=== PATIENT | female | born 1990 | race Caucasian/White ===

== ENCOUNTER 2018-09-08 09:28 | Emergency (ER) | payer MEDICAID ==
[~2018-09-08] VITALS: Ht 180.3 cm; Wt 121.2 kg
[2018-09-08 09:32] VITALS: BP 109/62
--- NOTE | 2018-09-08 09:40 | NUR ---
URINE COLLECTED AND SENT TO LAB
--- NOTE | 2018-09-08 09:40 | NUR ---
C/O NAUSEA, HEADACHE AND DIARRHEA X1 DAY. PT STATES SHE HAS HAD WATERY DIARRHEA SINCE LAST NIGHT. HEADACHE AND ADB PAIN CRAMPING LLQ 6/10 X1 WEEK. DENIES UTI SYMPTOMS, DENIES FEVER.SKIN IS PINK/WARM/DRY; AAOX4 WITH EVEN AND STEADY GAIT; VSS; PATIENT POSITIONED FOR COMFORT; HOB ELEVATED; BEDRAILS UP X1; BED DOWN. ER MD MADE AWARE OF PT STATUS.
--- NOTE | 2018-09-08 09:40 | NUR ---
Patient ambulated to bed 9. RN evaluating patient at bedside.
[2018-09-08 10:31] LABS: BASOPHILS # (AUTO) 0.1 K/uL (0.00-0.22); BASOPHILS % (AUTO) 0.8 % (0.0-2.0); EOSINOPHILS # (AUTO) 0.1 K/uL (0-0.4); HEMOGLOBIN 8.3 g/dL (12.0-16.0); LYMPHOCYTES # (AUTO) 1.4 K/uL (2.5-16.5); LYMPHOCYTES % (AUTO) 20.9 % (20.5-51.1); MEAN CORPUSCULAR HEMOGLOBIN 20 pg (27-31); MEAN CORPUSCULAR HGB CONC 31 g/dL (33-37); MEAN CORPUSCULAR VOLUME 66.1 fL (80-94); MONOCYTES # (AUTO) 0.4 K/uL (0.8-1.0); MONOCYTES % (AUTO) 5.7 % (1.7-9.3); NEUTROPHILS # (AUTO) 4.6 K/uL (1.8-7.7); NEUTROPHILS % (AUTO) 70.6 % (42.2-75.2); PLATELET COUNT (AUTO) 235 K/uL (140-450); RED BLOOD CELL COUNT(AUTO) 4.08 MIL/uL (4.20-5.40); RED CELL DISTRIBUTION WIDTH 18.8 % (11.6-13.7); WHITE BLOOD COUNT (AUTO) 6.5 K/uL (4.8-10.8)
[2018-09-08 10:33] LABS: APPEARANCE,URINE CLEAR (CLEAR); BILIRUBIN,URINE NEGATIVE (NEGATIVE); BLOOD, URINE NEGATIVE (NEGATIVE); COLOR,URINE YELLOW (YELLOW); LEUKOCYTE ESTERASE ,URINE NEGATIVE (NEGATIVE); NITRITE, URINE NEGATIVE (NEGATIVE); PH,URINE 7.5 (5.0-9.0); UGLUCOSE NEGATIVE (NEGATIVE)
[2018-09-08] MEDS ORDERED: ONDANSETRON 4 MG ODT PO ONE (11:55)
--- NOTE | 2018-09-08 11:55 | NUR ---
Dr. Justin evaluating patient at bedside.
[2018-09-08] MEDS ORDERED: ONDANSETRON 4 MG ODT ONE (12:01)
--- NOTE | 2018-09-08 12:40 | NUR ---
ULTRASOUND AT BEDSIDE COMPLETED
[2018-09-08 13:27] LABS: ALBUMIN 3.1 g/dL (3.4-5.0); ANION GAP 14.7 (8-16); CARBON DIOXIDE 23.1 mmol/L (21-32); CREATININE 0.7 mg/dL (0.6-1.3); POTASSIUM 3.8 mmol/L (3.5-5.1); TOTAL BILIRUBIN 0.3 mg/dL (0.0-1.0)
--- NOTE | 2018-09-08 14:14 | NUR ---
Patient discharged with v/s stable. Written and verbal after care instructions given and explained. Patient verbalized understanding. Ambulatory with steady gait. All questions addressed prior to discharge. Advised to follow up with PMD.
[2018-09-08 14:15] VITALS: BP 138/87
== END 2018-09-08 14:14 | disposition home or self-care (01) ==
LOC: MED 09:28
DX: K52.9 Noninfective gastroenteritis and colitis, unspecified (principal); Z88.1 Allergy status to other antibiotic agents
CPT/HCPCS: 36415; 76830; 80053; 81003; 81025; 83690; 85025; 99284; Q0092; Q0162

== ENCOUNTER 2019-02-15 12:23 | Emergency (ER) | payer MEDICAID ==
[~2019-02-15] VITALS: Ht 162.6 cm; Wt 120.7 kg
[2019-02-15 12:26] VITALS: BP 120/71
[2019-02-15 13:11] LABS: BILIRUBIN,URINE NEGATIVE (NEGATIVE); BLOOD, URINE 3+ (NEGATIVE); COLOR,URINE YELLOW (YELLOW); LEUKOCYTE ESTERASE ,URINE 1+ (NEGATIVE); NITRITE, URINE NEGATIVE (NEGATIVE); PH,URINE 6.5 (5.0-9.0); UGLUCOSE NEGATIVE (NEGATIVE)
[2019-02-15 13:13] LABS: APPEARANCE,URINE HAZY (CLEAR)
[2019-02-15 13:21] LABS: RBC,URINE 11-20 (MOD) /HPF (0-5)
[2019-02-15 13:24] LABS: URINE AMORPHOUS URATE 1+ /HPF (None Seen)
[2019-02-15 13:43] VITALS: BP 131/68
== END 2019-02-15 13:43 | disposition home or self-care (01) ==
LOC: MED 12:23
DX: N39.0 Urinary tract infection, site not specified (principal); K59.00 Constipation, unspecified; N93.9 Abnormal uterine and vaginal bleeding, unspecified; Z88.0 Allergy status to penicillin
CPT/HCPCS: 74018; 81001; 81025; 87086; 99284

== ENCOUNTER 2019-06-30 08:47 | Emergency (ER) | payer MEDICAID ==
[~2019-06-30] VITALS: Ht 165.1 cm; Wt 121.3 kg
[2019-06-30 08:54] VITALS: BP 127/64
--- NOTE | 2019-06-30 08:58 | NUR ---
PT TO BED 12 WITH STEADY GAIT Addendum: 06/30/19 at 0859 by [email or web address] BED 11
--- NOTE | 2019-06-30 09:00 | NUR ---
28/F BIB FAMILY C/O LOWER ABDOMINAL CRAMPING, H/A, AND CHILLS X 1 WEEK. DENIES DYSURIA.TOOK HOME TEST (+). LMP MAY 28, 2019. ABDOMEN SOFT. PATIENT STATES PAIN OF 8/10 AT THIS TIME. PATIENT POSITIONED FOR COMFORT; HOB ELEVATED; BEDRAILS UP X1; BED DOWN. ER MD MADE AWARE OF PT STATUS.
--- NOTE | 2019-06-30 09:48 | NUR ---
US AT BEDSIDE
[2019-06-30 10:42] LABS: BASOPHILS % (AUTO) 0.4 % (0.0-2.0); EOSINOPHILS # (AUTO) 0.1 K/uL (0-0.4); EOSINOPHILS % (AUTO) 1.8 % (0.0-4.0); HEMATOCRIT 26.6 % (36-48); HEMOGLOBIN 8.1 g/dL (12.0-16.0); LYMPHOCYTES # (AUTO) 1.3 K/uL (2.5-16.5); LYMPHOCYTES % (AUTO) 19.7 % (20.5-51.1); MEAN CORPUSCULAR HEMOGLOBIN 20 pg (27-31); MEAN CORPUSCULAR HGB CONC 31 g/dL (33-37); MEAN CORPUSCULAR VOLUME 65.7 fL (80-94); MONOCYTES # (AUTO) 0.4 K/uL (0.8-1.0); MONOCYTES % (AUTO) 6.6 % (1.7-9.3); NEUTROPHILS # (AUTO) 4.9 K/uL (1.8-7.7); NEUTROPHILS % (AUTO) 71.5 % (42.2-75.2); PLATELET COUNT (AUTO) 303 K/uL (140-450); RED BLOOD CELL COUNT(AUTO) 4.05 MIL/uL (4.20-5.40); RED CELL DISTRIBUTION WIDTH 19.9 % (11.6-13.7); WHITE BLOOD COUNT (AUTO) 6.8 K/uL (4.8-10.8)
[2019-06-30 11:25] LABS: ANION GAP 13.4 (8-16); CARBON DIOXIDE 24.3 mmol/L (21-32); CREATININE 0.7 mg/dL (0.6-1.3); POTASSIUM 3.7 mmol/L (3.5-5.1)
[2019-06-30 12:22] LABS: APPEARANCE,URINE SL CLOUDY (CLEAR); BILIRUBIN,URINE NEGATIVE (NEGATIVE); BLOOD, URINE NEGATIVE (NEGATIVE); COLOR,URINE YELLOW (YELLOW); LEUKOCYTE ESTERASE ,URINE 1+ (NEGATIVE); NITRITE, URINE NEGATIVE (NEGATIVE); UGLUCOSE NEGATIVE (NEGATIVE)
[2019-06-30 12:33] LABS: RBC,URINE NONE SEEN /HPF (0-5)
[2019-06-30 13:19] VITALS: BP 119/62
--- NOTE | 2019-06-30 13:19 | NUR ---
Patient discharged with v/s stable. Written and verbal after care instructions given and explained. Patient alert, oriented and verbalized understanding of instructions. Ambulatory with steady gait. All questions addressed prior to discharge. ID band removed. Patient advised to follow up with PMD. Rx of macrobid given. Patient educated on indication of medication including possible reaction and side effects. Opportunity to ask questions provided and answered. 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
== END 2019-06-30 13:19 | disposition home or self-care (01) ==
LOC: MED 08:47
DX: O23.41 Unspecified infection of urinary tract in pregnancy, first trimester (principal); R03.0 Elevated blood-pressure reading, without diagnosis of hypertension; Z88.1 Allergy status to other antibiotic agents
CPT/HCPCS: 36415; 76801; 80048; 81001; 81025; 84702; 85025; 86900; 86901; 87086; 99284; Q0092

== ENCOUNTER 2019-08-14 08:18 | Emergency (ER) | payer MEDICAID ==
[~2019-08-14] VITALS: Ht 162.6 cm; Wt 121.1 kg
[2019-08-14 08:25] VITALS: BP 126/68
[2019-08-14 08:58] LABS: BASOPHILS % (AUTO) 0.5 % (0.0-2.0); EOSINOPHILS # (AUTO) 0.1 K/uL (0-0.4); EOSINOPHILS % (AUTO) 1.1 % (0.0-4.0); HEMATOCRIT 33.1 % (36-48); HEMOGLOBIN 10.2 g/dL (12.0-16.0); LYMPHOCYTES # (AUTO) 1.3 K/uL (2.5-16.5); LYMPHOCYTES % (AUTO) 16.5 % (20.5-51.1); MEAN CORPUSCULAR HEMOGLOBIN 23 pg (27-31); MEAN CORPUSCULAR HGB CONC 31 g/dL (33-37); MEAN CORPUSCULAR VOLUME 72.9 fL (80-94); MONOCYTES # (AUTO) 0.3 K/uL (0.8-1.0); MONOCYTES % (AUTO) 4.4 % (1.7-9.3); NEUTROPHILS # (AUTO) 6.1 K/uL (1.8-7.7); NEUTROPHILS % (AUTO) 77.5 % (42.2-75.2); PLATELET COUNT (AUTO) 229 K/uL (140-450); RED BLOOD CELL COUNT(AUTO) 4.53 MIL/uL (4.20-5.40); RED CELL DISTRIBUTION WIDTH 24.8 % (11.6-13.7); WHITE BLOOD COUNT (AUTO) 7.8 K/uL (4.8-10.8)
[2019-08-14 09:00] LABS: APPEARANCE,URINE SL CLOUDY (CLEAR); BILIRUBIN,URINE NEGATIVE (NEGATIVE); BLOOD, URINE 3+ (NEGATIVE); COLOR,URINE YELLOW (YELLOW); LEUKOCYTE ESTERASE ,URINE NEGATIVE (NEGATIVE); NITRITE, URINE NEGATIVE (NEGATIVE); PH,URINE 8.5 (5.0-9.0); UGLUCOSE NEGATIVE (NEGATIVE)
[2019-08-14 09:22] LABS: ANION GAP 9.1 (8-16); CARBON DIOXIDE 28.5 mmol/L (21-32); CREATININE 0.6 mg/dL (0.6-1.3); POTASSIUM 3.6 mmol/L (3.5-5.1)
[2019-08-14 09:38] LABS: WBC,URINE 0-5 /HPF (0-5)
[2019-08-14 10:13] VITALS: BP 126/68
== END 2019-08-14 10:13 | disposition home or self-care (01) ==
LOC: MED 08:18
DX: O46.91 Antepartum hemorrhage, unspecified, first trimester (principal); O21.9 Vomiting of pregnancy, unspecified; Z88.1 Allergy status to other antibiotic agents
CPT/HCPCS: 36415; 76801; 80048; 81001; 84702; 85025; 86900; 86901; 99284; Q0092